=== PATIENT | male | born 1995 | race Caucasian/White ===

== ENCOUNTER 2016-09-02 02:25 | Emergency (ER) | payer OTHER ==
[2016-09-02 02:52] LABS: Bilirubin Negative (Negative); Blood, Urine Negative (Negative); Clarity Clear (Clear); Glucose, Urine (Dipstick) Negative (Negative); Leukocyte Negative (Negative); Nitrite Negative (Negative); Protein, Urine (Dipstick) Negative (Neg-Trace); Urobilinogen 0.2 mg/dL (0.2-1.0); pH, Urine 5.5 (5.0-9.0)
[2016-09-02 02:54] LABS: Specific Gravity, Urine 1.004 (1.002-1.036)
[2016-09-02 03:07] LABS: #Basophils 0.1 thou/uL (0.0-0.2); #Eosinphils 0.1 thou/uL (0.0-0.7); #Lymphocytes 1.6 thou/uL (1.20-3.40); #Monocytes 0.6 thou/uL (0.11-0.59); #Neutrophils 5.7 thou/uL (1.40-6.50); %Basophils 1.1 % (0.0-1.0); %Eosinophils 0.7 % (0.0-10.0); %Lymphocytes 20.2 % (28.0-48.0); %Monocytes 7.7 % (0.0-4.0); %Neutrophils 70.3 % (31.0-61.0); Hemoglobin 15.9 g/dL (14.0-18.0); Mean Corpuscular HGB CONC 35.2 g/dL (32.0-36.0); Mean Corpuscular Hemoglobin 30.7 pg (25.0-35.0); Mean Corpuscular Volume 87.1 fl (77.0-87.0); Platelet Count 227 thou/uL (130-400); Red Blood Cell (RBC) Count 5.17 mill/uL (4.00-5.20)
[2016-09-02 03:09] LABS: INR-International Normal Ratio 1.1; PTT 28.9 SEC (22.9-36.1); Prothrombin Time 14.1 SEC (12.0-14.7)
[2016-09-02] MEDS ORDERED: Lidocaine 1% w/Epinephrine 1:100K 30 ML VIAL ONE ×2 (03:21→03:23)
[2016-09-02 03:23] LABS: ALT (SGPT) 20 U/L (8-55); AST (SGOT) 25 U/L (5-34); Albumin 4.7 g/dL (3.5-5.0); Alcohol 253 mg/dL (Less than 10); Alkaline Phosphatase 68 U/L (Less than 750); Anion Gap 17 mmol/L (10-20); BUN (Urea Nitrogen) 11 mg/dL (8.9-20.6); Bilirubin, Total 0.6 mg/dL (0.2-1.2); Calc. Creatinine Clearance 0 mL/min (70-130); Calcium 8.7 mg/dL (7.8-10.44); Carbon Dioxide 21 mmol/L (22-29); Chloride 106 mmol/L (98-107); Estimated GFR-MDRD Greater than 90; Globulin 2.6 g/dL (2.4-3.5); Glucose 101 mg/dL (70-105); Potassium 3.7 mmol/L (3.5-5.1); Protein, Total 7.3 g/dL (6.0-8.3); Sodium 140 mmol/L (136-145)
--- NOTE | 2016-09-02 10:20 | RAD ---
PORTABLE CHEST: Date: 09/02/16 An AP portable film at 0234 hours shows a normal sized heart and mediastinum. There is no mediastina l widening or shift. The trachea is midline. The lungs are fully inflated and clear. No infiltrate, effusion, or pneumothorax seen. The visible bony structures appear intact. IMPRESSION: No acute thoracic findings. POS: HOME
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
== END 2016-09-02 04:11 | disposition home or self-care (01) ==
LOC: BURERS 02:25
DX: S01.81XA Laceration without foreign body of other part of head, initial encounter (principal); S20.319A Abrasion of unspecified front wall of thorax, initial encounter; S20.419A Abrasion of unspecified back wall of thorax, initial encounter; F10.129 Alcohol abuse with intoxication, unspecified; Y90.8 Blood alcohol level of 240 mg/100 ml or more; F17.210 Nicotine dependence, cigarettes, uncomplicated; V86.59XA Driver of other special all-terrain or other off-road motor vehicle injured in nontraffic accident, initial encounter
CPT/HCPCS: 12011; 12052; 70450; 71010; 80053; 80307; 81003; 85025; 85610; 85730; J2001

== ENCOUNTER 2021-11-07 00:55 | Emergency (ER) | payer OTHER, BC ==
[2021-11-07] MEDS ORDERED: CEFAZOLIN 1 GM VIAL ONE (01:10)
[2021-11-07] MEDS ORDERED: Boostrix 0.5 ML (Tdap) VIAL (>/=7 yrs of age) ONE (01:10)
[2021-11-07] MEDS ORDERED: Lidocaine 2% w/Epinephrine 1:200K 20 ML VIAL ONE (01:11)
[2021-11-07] MEDS ORDERED: Bacitracin 1 PK ONE (01:32)
== END 2021-11-07 01:35 | disposition home or self-care (01) ==
LOC: BURERS 00:55
DX: S41.111A Laceration without foreign body of right upper arm, initial encounter (principal); F17.290 Nicotine dependence, other tobacco product, uncomplicated; Z23 Encounter for immunization; W25.XXXA Contact with sharp glass, initial encounter
CPT/HCPCS: 12001; 90471; 90715; 96372; J0690